=== PATIENT | male | born 1975 | race Caucasian/White ===

== ENCOUNTER → 2022-06-25 07:45 | Outpatient (BNVA) | payer OTHER, SELFPAY | PROVIDERS: Family Provider Family Medicine; PCP Family Medicine; Referring Provider Family Medicine; Visit Provider Student in an Organized Health Care Education/Training Program | DX: M25.512 Pain in left shoulder (principal) | CPT/HCPCS: 73030 ==

== ENCOUNTER 2023-12-19 09:00 | Outpatient (CLI) | payer OTHER, SELFPAY | END 2023-12-19 09:01 | disposition home or self-care (01) | LOC: SLEEP 12-20 07:43 | PROVIDERS: Family Provider Family Medicine; PCP Family Medicine; Visit Provider Family Medicine | DX: G47.10 Hypersomnia, unspecified (principal) | CPT/HCPCS: G0399 ==

== ENCOUNTER → 2025-03-22 09:00 | Outpatient (BNVA) | payer OTHER, SELFPAY | PROVIDERS: Family Provider Family Medicine; PCP Family Medicine; Visit Provider Nurse Practitioner Family | DX: E29.1 Testicular hypofunction (principal) | CPT/HCPCS: 80053; 84403; G0103 ==